=== PATIENT | female | born 1980 | race Two or more races ===

== ENCOUNTER 2021-01-31 18:38 | Observation (INO) | payer OTHER, MEDICARE ==
[~2021-01-31] VITALS: Ht 157.5 cm; Wt 127.0 kg
[2021-01-31 19:19] LABS: HEMOGLOBIN 16.2 gm/dl (12.3-15.3); RED BLOOD COUNT 5.22 M/UL (4.00-5.10)
[2021-01-31 19:37] LABS: BUN/CREATININE RATIO 19 (0-10)
[2021-01-31 20:00] LABS: BORDETELLA PARAPERTUSSIS Not Detected (Not Detectd); BORDETELLA PERTUSSIS Not Detected (Not Detectd); CHLAMYDIA PNEUMONIAE Not Detected (Not Detectd); CORONAVIRUS HKU1 Not Detected (Not Detectd); CORONAVIRUS NL63 Not Detected (Not Detectd); CORONAVIRUS OC43 Not Detected (Not Detectd); CORONOAVIRUS 229E Not Detected (Not Detectd); HUMAN METAPNEUMOVIRUS Not Detected (Not Detectd); HUMAN RHINOVIRUS/ENTEROVIRUS Not Detected (Not Detectd); INFLUENZA A Not Detected (Not Detectd); INFLUENZA B Not Detected (Not Detectd); MYCOPLASMA PNEUMONIAE Not Detected (Not Detectd); PARAINFLUENZA VIRUS 1 Not Detected (Not Detectd); PARAINFLUENZA VIRUS 2 Not Detected (Not Detectd); PARAINFLUENZA VIRUS 3 Not Detected (Not Detectd); PARAINFLUENZA VIRUS 4 Not Detected (Not Detectd); RESPIRATORY SYNCYTIAL VIRUS Not Detected (Not Detectd)
[2021-01-31 21:21] LABS: SARS-CoV-2 NOT DETECTED (Not Detectd)
[2021-02-01 04:57] LABS: HEMOGLOBIN 14.8 gm/dl (12.3-15.3)
[2021-02-01 05:00] LABS: RED BLOOD COUNT 4.59 M/UL (4.00-5.10); WHITE BLOOD COUNT 10.5 K/UL (4.5-11.0)
[2021-02-01 05:24] LABS: BUN/CREATININE RATIO 15 (0-10)
--- NOTE | 2021-02-01 12:50 | NUR ---
RN SPOKE WITH DR. TORRES ABOUT REMOVING TELEMETRY FOR MRI, MD STATED PATIENT COULD GO WITHOUT IT UNTIL RETURNED TO THE FLOOR.
[2021-02-01] MEDS ORDERED: ATORVASTATIN CA20 MG PO (19:03)
[2021-02-01] MEDS ORDERED: OYSTER SHELL C500 MG PO (19:03)
[2021-02-01] MEDS ORDERED: KEPPRA 500 MG500 MG PO (19:03)
[2021-02-01] MEDS ORDERED: ASPIRIN EC81 MG PO (19:03)
== END 2021-02-01 23:26 | disposition home or self-care (01) ==
LOC: ER1 18:38 → CDU 22:25 → MED SURG 4 22:25 → CDU 22:25 → MED SURG 4 02-01 07:35
PROVIDERS: Emergency Medicine; Internal Medicine; ADMIT Internal Medicine
DX: G40.909 Epilepsy, unspecified, not intractable, without status epilepticus (principal); I69.354 Hemiplegia and hemiparesis following cerebral infarction affecting left non-dominant side; E87.2 Acidosis; E83.51 Hypocalcemia; I10 Essential (primary) hypertension; F17.210 Nicotine dependence, cigarettes, uncomplicated; Z91.14 Patient's other noncompliance with medication regimen; Z88.2 Allergy status to sulfonamides; Z88.5 Allergy status to narcotic agent; Z88.6 Allergy status to analgesic agent
CPT/HCPCS: 70450; 70551; 71045; 80048; 80053; 80307; 81001; 82962; 83605; 83690; 83735; 85025; 85610; 85730; 87040; 87086; 87633; 95819; 96374; 96375; 96376; 99285; G0378; G0480; J0692; J1953; J7030